=== PATIENT | male | born 1950 | race Caucasian/White ===

== ENCOUNTER 2016-10-28 16:58 | Emergency (ER) | payer OTHER ==
[2016-10-28 17:19] VITALS: BP 157/92
--- NOTE | 2016-10-28 17:31 | UC ---
Respiratory Complaint HPI - HPI Summary HPI Summary: The patient comes in today for: 1. Cough/chest congestion: Onset: 3 weeks ago he developed a cough. Palliative/provocative: Cough expectorant and suppressant helps suppress the cough Quality: "tickle" "raspy." Region/radiation: Lungs/chest Severity: 11/06 Time: Cough comes and goes. Associated symptoms: Last night chills: No temperature taken. Chest pain: Present with deep breath. He states that it is a tightness. Dyspnea: Present. Cough production: "Mostly clear." Inhaler use: None. Previous lung disease (asthma, COPD): None. Wheezing: None. No known pertussis exposure. * - History of Current Complaint Chief Complaint: UC Stated Complaint: CHEST CONGESTION, AND CHILLS Time Seen by Provider: 10/28/16 17:24 Hx Obtained From: Patient - Allergies/Home Medications Allergies/Adverse Reactions: Allergies Allergy/AdvReac Type Severity Reaction Status Date / Time No Known Allergies Allergy Verified 10/28/16 17:13 Home Medications: Home Medications Ibuprofen [Advil] 200 mg PO Q6H PRN 10/28/16 [History Confirmed 10/28/16] Tadalafil [Cialis] 2.5 mg PO DAILY 10/28/16 [History Confirmed 10/28/16] PMH/Surg Hx/FS Hx/Imm Hx Previously Healthy: No - ED/BPH, Squamous cell CA. Endocrine History Of: Reports: Dyslipidemia Denies: Diabetes, Thyroid Disease, Hyperthyroidism, Hypothyroidism Cardiovascular History Of: Denies: Cardiac Disorders, Hypertension, Pacemaker/ICD, Myocardial Infarction , Congestive Heart Failure, Atrial Fibrillation, Deep Vein Thrombosis, Bleeding Disorders Respiratory History Of: Denies: COPD, Asthma, Bronchitis, Pneumonia, Pulmonary Embolism GI/ History Of: Denies: Gastroesophageal Reflux, Ulcer, Gastrointestinal Bleed, Gall Bladder Disease, Kidney Stones, Diverticulitis, Renal Disease, Urosepsis Neurological History Of: Denies: TIA, CVA, Dementia, Seizures, Migraine Psychological History Of: Denies: Anxiety, Depression, Bipolar Disorder, Schizophrenia, Post Traumatic Stress Disorder Cancer History Of: Denies: Lung Cancer, Colorectal Cancer, Breast Cancer, Prostate Cancer, Cervical Cancer Other History Of: Negative For: HIV, Hepatitis B, Hepatitis C, Anticoagulant Therapy - Surgical History Surgical History: Yes Surgery Procedure, Year, and Place: CATARACTS, SHOULDER SURGERY, URINARY TRACT SURGERY - Family History Known Family History: Positive: Cardiac Disease Negative: Hypertension - Social History Occupation: Employed Full-time Alcohol Use: Daily Alcohol Amount: a beer a day Substance Use Type: None Smoking Status (MU): Never Smoked Tobacco - Immunization History Most Recent Influenza Vaccination: fall 2015 Review of Systems Constitutional: Negative Skin: Negative Eyes: Negative ENT: Negative Respiratory: Shortness Of Breath, Cough Cardiovascular: Chest Pain Gastrointestinal: Negative Genitourinary: Negative Motor: Negative All Other Systems Reviewed And Are Negative: Yes Physical Exam Triage Information Reviewed: Yes Appearance: Well-Appearing, No Pain Distress, Well-Nourished, Other: - He rarely coughed in the examination room. Vital Signs: Initial Vital Signs Temp 98.5 F 10/28/16 17:15 Pulse 74 10/28/16 17:15 Resp 16 10/28/16 17:15 BP 157/92 10/28/16 17:15 Pulse Ox 97 10/28/16 17:15 Vital Signs Reviewed: Yes Eyes: Positive: Conjunctiva Clear. Negative: Discharge ENT: Positive: Hearing grossly normal. Negative: Pharyngeal erythema, Nasal congestion, Nasal drainage, TM bulging, TM dull, TM red, Tonsillar swelling, Tonsillar exudate Dental: Negative: Gross Decay/Caries @, Dental Fracture @ Neck: Positive: Supple, Nontender, No Lymphadenopathy. Negative: Nuchal Rigidity Respiratory: Positive: Chest non-tender, Lungs clear, No respiratory distress, No accessory muscle use. Negative: Crackles, Wheezing Cardiovascular: Positive: RRR, No Murmur Abdomen Description: Positive: Nontender, No Organomegaly, Soft. Negative: Distended, Guarding Musculoskeletal: Positive: Strength Intact, ROM Intact, No Edema Neurological: Positive: Alert, Muscle Tone Normal Psychological: Positive: Age Appropriate Behavior, Consolable Skin: Negative: rashes, breakdown UC Diagnostic Evaluation - Laboratory O2 Sat by Pulse Oximetry: 97 Respiratory Course/Dx - Course Course Of Treatment: Patient was told that I did not know for sure what he had causing his cough, but thought it may be an early pneumonia, postinfectious cough, atypical asthma, ever neoplasia or "cardiac asthma (CAD)" and told him that we are not able to rule out heart causes for chest tightness/dyspnea here. He was told of the diagnostic options we have here (CXR and EGK) but he did not want these. He stated that he did not want to get "involved" in all the diagnostic work up and confessed that he only wanted to come here for an antibiotic because this symptom complex is what he had a few years ago and he got zithromax and he was better in one day. This is what he wanted and declined any diagnostic evaulation and certainly was declining going to the ER. He only wanted to try the zithromax at this time. - Differential Dx/Diagnosis Differential Diagnosis/HQI/PQRI: Bronchitis, Laryngitis, Pulmonary Embolism, Sinusitis Provider Diagnoses: Cough, dyspnea, chest pain Discharge - Discharge Plan Condition: Stable Disposition: AGAINST MEDICAL ADVICE Referrals: Gordon Rucker MD [Primary Care Provider] - As Soon As Possible (If you are not going to the ER for an evaluation of your chest tightness and dyspnea, please see your primary care provider as soon as you can. If you get worse, please re- consider going to the ER.)
== END 2016-10-28 17:58 | disposition left against medical advice (07) ==
LOC: UCEAST 16:58
DX: R05 Cough (principal); R06.00 Dyspnea, unspecified; R07.89 Other chest pain
CPT/HCPCS: 99212; G0463